=== PATIENT | female | born 1990 | race Caucasian/White ===

== ENCOUNTER 2016-12-17 23:25 | Emergency (ER) | payer OTHER ==
[~2016-12-17] VITALS: Ht 162.6 cm; Wt 56.8 kg
[~2016-12-17 23:25] MED LIST: METHIMAZOLE10 MG PO; OCELLA 3 MG-0.01 TAB PO
[2016-12-17 23:28] VITALS: BP 140/96; TEMP 97.7
[2016-12-18] MEDS ORDERED: NORCO 325 MG-51 TAB PO (00:51)
[2016-12-18 01:02] VITALS: PULSE 63
== END 2016-12-18 01:03 | disposition home or self-care (01) ==
LOC: COL.ER 23:25
DX: S86.211A Strain of muscle(s) and tendon(s) of anterior muscle group at lower leg level, right leg, initial encounter (principal); X50.1XXA Overexertion from prolonged static or awkward postures, initial encounter; Y93.E8 Activity, other personal hygiene; Y92.003 Bedroom of unspecified non-institutional (private) residence as the place of occurrence of the external cause
CPT/HCPCS: L1830